=== PATIENT | female | born 1995 | race Two or more races ===

== ENCOUNTER 2016-08-23 20:51 | Emergency (ER) | payer OTHER ==
[~2016-08-23] VITALS: Ht 167.6 cm; Wt 154.6 kg
[~2016-08-23 20:51] MED LIST: ADDERALL XR20 MG PO; ASPIR-LOW81 MG PO; CIPRO500 MG PO; COLACE100 MG PO; HUMULIN N100 UNITS/ SC; HUMULIN N100 UNITS/ SQ; LABETALOL HCL100 MG PO; LEVOTHROID,S0.025 M1 PO; LEVOTHYROXINE150 MCG PO; METFORMIN HCL500 M1 PO; NAPROSYN500 MG PO; NORCO 5/3251 TABLET PO; NOVOLOG 10100 UNITS/ SC; OXAYDO5 MG PO; PERCOCET 5/31 TABLET PO; SYNTHROID100 MCG PO; VITAMIN D-3 401 EACH PO; VITAMIN D32000 UNI1 PO; ZOFRAN ODT4 MG PO
[2016-08-23] MEDS ORDERED: NORCO 5/3251 TABLET PO (21:44)
[2016-08-23 21:52] VITALS: BP 146/87
== END 2016-08-23 22:13 | disposition home or self-care (01) ==
LOC: EXP 20:51 → EME 20:51 → EXP 22:13
DX: K08.89 Other specified disorders of teeth and supporting structures (principal)
CPT/HCPCS: 99281; 99283

== ENCOUNTER 2018-02-24 23:21 | Emergency (ER) | payer OTHER ==
[~2018-02-24] VITALS: Ht 167.6 cm; Wt 153.5 kg
[~2018-02-24 23:21] MED LIST changes: +BENTYL20 MG PO; +CARAFATE1 GM PO; +GLUCOPHAGE500 MG PO; +LEVOTHYROXINE100 MCG PO; +ZANTAC150 MG PO
[2018-02-25 00:06] LABS: HEMATOCRIT 43.7 % (36.0-46.0); HEMOGLOBIN 14.6 G/DL (11.9-15.5); MCH 27.1 PG (29.0-34.0); MCHC 33.4 G/DL (30.0-36.0); MCV 81.1 FL (83-99); PLATELET COUNT 315 K/uL (156-360); RBC DIS.WIDTH-CV 13.4 % (11.8-14.6); RBC DIS.WIDTH-SD 39.5 % (39-53); RED BLOOD COUNT 5.39 M/uL (3.80-5.20); WHITE BLOOD COUNT 10.5 K/uL (4.1-10.2)
[2018-02-25 00:15] LABS: ALBUMIN 4.2 g/dL (3.2-4.8); CHLORIDE 105 mEq/L (99-109); POTASSIUM 4.4 mEq/L (3.7-5.4); SODIUM 139 mEq/L (136-147)
[2018-02-25 00:17] LABS: GLUCOSE 221 mg/dL (70-99)
[2018-02-25 00:18] LABS: TOTAL PROTEIN 7.1 g/dL (6.4-8.3)
[2018-02-25 00:19] LABS: TOTAL BILIRUBIN 0.3 mg/dL (0.0-1.0)
[2018-02-25 00:21] LABS: ALKALINE PHOSPHATASE 82 IU/L (3-129); CREATININE 0.8 mg/dL (0.6-1.3); GFR ESTIMATE (CALCULATED) > 59 mL/min/
[2018-02-25 00:22] LABS: UREA NITROGEN (BUN) 8 mg/dL (9-23)
[2018-02-25 00:23] LABS: AST (GOT) 11 IU/L (2-34)
[2018-02-25 00:24] LABS: ALT (GPT) 13 IU/L (3-49); LIPASE 27 U/L (1.0-51.0)
[2018-02-25 00:34] LABS: QUANTITATIVE HCG < 4.0 MIU/ML
[2018-02-25 02:06] LABS: APPEARANCE SL.HAZY ((CLEAR)); BILIRUBIN NEGATIVE; BLOOD NEGATIVE; COLOR YELLOW ((YELLOW)); GLUCOSE (STRIP) 50; KETONES NEGATIVE; LEUKOCYTES TRACE; NITRITE NEGATIVE; PROTEIN (STRIP) 30; SPECIFIC GRAVITY 1.025 (1.000-1.030); UROBILINOGEN 0.2 MG/DL (0.2-1.0)
[2018-02-25 02:11] LABS: BACTERIA RARE /HPF; EPITHELIAL CELLS 3+ /HPF; MUCUS TRACE /LPF; RED BLOOD CELLS 0-5 /HPF (0-5); UCUL ADDED? NO; WHITE BLOOD CELLS 0-5 /HPF (0-5)
[2018-02-25] MEDS ORDERED: CARAFATE100 MG/ML PO (02:23)
[2018-02-25] MEDS ORDERED: ZANTAC300 MG PO (02:23)
[2018-02-25 02:24] VITALS: BP 116/82
[2018-02-25] MEDS ORDERED: ZOFRAN ODT8 MG PO (02:36)
== END 2018-02-25 02:44 | disposition home or self-care (01) ==
LOC: EME 23:21
DX: K21.9 Gastro-esophageal reflux disease without esophagitis (principal); E11.65 Type 2 diabetes mellitus with hyperglycemia; Z79.84 Long term (current) use of oral hypoglycemic drugs; F17.200 Nicotine dependence, unspecified, uncomplicated; E66.01 Morbid (severe) obesity due to excess calories; Z68.43 Body mass index [BMI] 50.0-59.9, adult; F90.9 Attention-deficit hyperactivity disorder, unspecified type; Z90.49 Acquired absence of other specified parts of digestive tract
CPT/HCPCS: 80053; 81003; 83690; 84702; 85027; 99281; 99284